=== PATIENT | female | born 1995 | race Caucasian/White ===

== ENCOUNTER 2025-03-19 19:00 | Emergency (ER) | payer OTHER, SELFPAY ==
[2025-03-19 19:03] VITALS: BP 117/77
[2025-03-19 21:07] LABS: Hematocrit 39.2 % (37.0-47.0); Hemoglobin 13.6 g/dL (12.0-16.0); Mean Corp Hgb Conc. 34.7 g/dL (33.0-37.0); Mean Corpuscular Volume 85.2 fL (81.0-99.0); Nucleated Red Blood Cells % 0 %; Platelet Count 307 10^3/uL (130-400); Red Cell Dist. Width 12.4 % (11.5-14.5)
[2025-03-19 21:25] LABS: ALT (SGPT) 16 U/L (0-35); AST (SGOT) 18 U/L (14-36); Albumin 4.7 g/dl (3.5-5.0); Alkaline Phosphatase 50 U/L (38-126); Blood Urea Nitrogen 21 mg/dl (7-17); Calcium 9.7 mg/dl (8.4-10.2); Carbon Dioxide 25 mmol/L (22-30); Chloride 106 mmol/L (98-107); Glucose 92 mg/dl (70-99); Potassium 4.5 mmol/L (3.5-5.1); Sodium 139 mmol/L (135-145); Total Protein 7.3 g/dl (6.3-8.2); eGFR > 60.00
--- NOTE | 2025-03-19 22:15 | ED.GENMED ---
History of Present Illness
General
Chief Complaint: Headache
Source: patient
Exam Limitations: none
Time Seen by Provider: 03/19/25 22:03
History of Present Illness
History of Present Illness:
See MDM
Past History
Past History
ED Past Medical History: None
ED Past Surgical History: Other (Lasik)
Social History
Tobacco: Non-smoker
Alcohol: None
Phy Exam
Physical Exam
Physical Exam:
See MDM
Course
Orders/Labs/Results
Orders:
Orders
03/19/25 19:07
CT Head W/o Iv Contrast Urgent
Comment:
Reason For Exam: headache, blurry vision, nausea
03/19/25 21:01
Complete Blood Count/With Diff Urgent
Comprehensive Metabolic Panel Urgent
03/19/25 22:15
Butalb/Acetaminophen/Caffeine [Fioricet] 1 tab PO NOW STA
Abnormal Lab Results
03/19/25
21:01
BUN 21 H mg/dl
(12-21)
03/19/25 21:01
03/19/25 21:01
Vital Signs
Initial and Last Documented VS:
Initial Vital Signs
Temp Pulse Resp BP Pulse Ox
98.7 F 95 16 117/77 98
03/19/25 19:03 03/19/25 19:03 03/19/25 19:03 03/19/25 19:03 03/19/25 19:03
Last Documented Vital Signs
Temp Pulse Resp BP Pulse Ox
98.7 F 95 16 117/77 98
03/19/25 19:03 03/19/25 19:03 03/19/25 19:03 03/19/25 19:03 03/19/25 19:03
MDM/Problems Addressed
Differential Diagnosis Includes:
Note:
CHIEF COMPLAINT(S)
Persistent headaches for approximately one month, with significant pressure and blurred vision.
HISTORY OF PRESENT ILLNESS
The patient is a 30-year-old female presenting with ongoing headaches for the past month. The headaches are described as concentrated at the top of the head, extending behind the eyes, and accompanied by significant pressure and occasional blurry
vision. Approximately one month ago, the patient visited an urgent care facility due to a headache and was prescribed a Medrol dose pack (methylprednisolone) which did not result in symptomatic relief. Two weeks later, the patient was prescribed
Augmentin (amoxicillin/clavulanate) but has not experienced significant improvement.
Current laboratory findings and a computed tomography scan were reported as normal, with no significant sinus issues noted.
The patient reports a history of declining vision post-LASIK surgery. The blurred vision associated with headaches has prompted a recommendation for follow-up with an veterinary practice manager to reassess the need for corrective lenses.
The patient denies significant prior medical history of migraines or any other medical problems. The primary treatment has included pain relief measures such as non-steroidal anti-inflammatory drugs (NSAIDs) and fluid intake. The patient has been
advised regarding the possibility of trialing headache medication, specifically Fioricet (butalbital/acetaminophen/caffeine), noting the potential side effect of drowsiness.
PHYSICAL EXAM
General: Alert, no acute distress.
Skin: Warm, dry.
Head: Normocephalic, atraumatic. No tenderness to palpation of bilateral temporal arteries.
Neck: Appears supple, trachea midline.
Eyes, Ears, Nose, Mouth, and Throat: Moist mucous membranes. Pupils equal reactive. EOMI
Cardiovascular: No signs of cyanosis
Respiratory: Respirations are non-labored.
Abdomen: Non-distended
Musculoskeletal: No deformities
Neurological: No focal neurological deficit observed.
Psychiatric: Cooperative, appropriate mood and affect.
PLAN
- Prescribe Furacet as-needed for headache relief, monitor for drowsiness.
- Recommend follow-up with an veterinary practice manager to evaluate changes in vision post-LASIK.
- Advise patient to consult with a primary care physician for further evaluation and potential referral to a neurologist if symptoms persist.
- Discuss the possibility of needing an MRI if headaches do not resolve.
- Reassess the need for prophylactic headache medication depending on the response to current treatment.
DIFFERENTIAL DIAGNOSIS
The Differential Diagnosis includes, in no particular order and is not limited to:
- Tension headache
- Migraine headache
- Sinus headache
- Cluster headache
- Eye strain or refractive error from vision changes
- Medication overuse headache
- Viral sinusitis
- Neurological disorder (such as intracranial mass or lesion)
- Temporal arteritis
- Dental-related headache (such as temporomandibular joint dysfunction)
SUMMARY OF ENCOUNTER
A 30-year-old female presented to the emergency department with persistent headaches lasting approximately one month. She has previously trialed steroids and antibiotics with no relief of symptoms. An urgent care visit prompted a referral to the
emergency department for a CT scan of the head due to persistent symptoms. On examination, she appeared well and non-toxic with no focal neurological deficits. It was discussed that her symptoms might be related to worsening vision, likely
necessitating corrective lenses.
DISPOSITION
Discharge.
PLAN
Prescribe Furacet (butalbital/acetaminophen/caffeine) for headache relief. Advise the patient to follow up with her primary care physician and ophthalmology for vision assessment. Discuss the potential need for an outpatient MRI if symptoms persist.
INDEPENDENT REVIEW OF LABS AND INTERPRETATION OF TESTS
My independent interpretation of the CT scan of the head reported normal findings with no significant sinus issues noted.
PATIENT EDUCATION AND COUNSELING
Discussed the possibility that her headaches are linked to vision changes post-LASIK surgery, and emphasizing the importance of following up with ophthalmology. Advised on the potential side effect of drowsiness from Furacet.
FOLLOW-UP INSTRUCTIONS
The patient should follow up with her primary care physician and ophthalmology as soon as possible. An outpatient MRI should be considered if there is no improvement in her symptoms.
MEDICATION RECONCILIATION
A short prescription for Furacet (butalbital/acetaminophen/caffeine) was provided for headache management.
MEDICAL DECISION MAKING
-Complexity of Data Reviewed: Chronic conditions affecting care include potential post-LASIK refractive error affecting vision leading to headaches. Differential diagnoses include tension headache, migraine headache, sinus headache, cluster
headache, eye strain or refractive error from vision changes, medication overuse headache, viral sinusitis, neurological disorder, temporal arteritis, and dental-related headache.
-Data:
Category 1
Non-emergency department records reviewed, CT imaging considered to evaluate persistent headaches, revealing normal results.
Category 2
No additional sources providing historical input.
Category 3
No consultations with specialists or other healthcare providers required.
-Risk:
Consideration of Admission/Observation: Escalation of care including admission/observation was considered given the complexity and risk of the patients presenting complaint, exam findings, and her underlying comorbidities. However, ultimately I feel
the patient is safe for outpatient management with close follow up. Reasoning: Work-up is reassuring, does not reveal any acute life/organ-threatening processes, patients symptoms well controlled upon reevaluation, reexamination is reassuring,
vitals are stable, patient agreeable with discharge, reliable for follow-up.
DIAGNOSIS
Tension headache (G44.209)
*Pulse Oximetry
SaO2: 98
Oxygen Mode of Delivery: Room air
Patient hypoxic: no
*Critical Care Note
Total Time (30-74mins, 75-104mins- exclusive of procedures): Not Applicable
ED Attending Note
-
Portions of this chart may have been created with voice recognition software.� Occasional wrong word or��sound alike� substitutions may have occurred due to the inherent limitations of voice recognition software.
Discharge Plan
Departure
Patient Disposition: Home (Routine Discharge)
Date of Disposition: 03/19/25
Time of Disposition: 22:17
Patient with high blood pressure during this ER visit?: No
Discharge Problem:
Headache
Instructions: Headache, Adult (DC)
Prescriptions:
New
[id number] [Fioricet] 50-300-40 mg capsule
1 cap PO Q8H PRN (Reason: Headache) Qty: 10 0RF
Referrals:
Brian Wagoner MD [Family Provider, Internal Medicine]
Activity Restrictions/Additional Instructions:
Please return for any worsening symptoms.
You may return at any time if you have further concerns.
Please follow up with your doctor at the first available appointment, preferably this week.
As we discussed, please follow-up with your veterinary practice manager as you may need corrective lenses. This could be the source of your headache.
Thank you for choosing [facility].
Interventions
Interventions:
*Risk Screen - Suicide Last Done: 03/19/25 20:52
*General Assessment Last Done: 03/19/25 20:52
*Neglect/Abuse Screening Last Done: 03/19/25 20:52
*ED- Fall Risk Assessment Last Done: 03/19/25 20:52
*ED COVID-19 Vaccine History Last Done: 03/19/25 20:52
*ED Influenza Vaccine History Last Done: 03/19/25 20:52
ED- Neurological Assessment Last Done: 03/19/25 20:52
Discharge Date and Time
Print Language: FAROESE
[2025-03-19] MEDS: FIORICET 1 TAB PO (22:22)
[2025-03-19 22:26] VITALS: BP 126/82
== END 2025-03-19 22:28 | disposition home or self-care (01) ==
LOC: EMR 19:00
PROVIDERS: Emergency Medicine; EMERGENCY PHYSICIAN Student in an Organized Health Care Education/Training Program; FAMILY PHYSICIAN Internal Medicine
DX: R51.9 Headache, unspecified (principal)
CPT/HCPCS: 99284; 70450; 80053; 85025